=== PATIENT | male | born 1990 | race Hispanic/Latino ===

== ENCOUNTER 2022-08-17 06:20 | Day surgery (SDC) | payer BC ==
[2022-08-16 13:46] LABS: Absolute Lymphocytes (CBC) 2.7 K/uL (0.7-4.9); Hematocrit 46.6 % (39.6-49.0); Lymphocytes % 33.6 % (15.3-44.8); MCV 85.4 fL (80-100); MPV 7.6 fL (7.6-11.3); RBC Red Blood Cell Count 5.46 M/uL (4.33-5.43)
[2022-08-16 14:17] LABS: Albumin 4.4 g/dL (3.4-5.0); Bilirubin Direct 0.3 mg/dL (0-0.2); Bilirubin Total 1.1 mg/dL (0.2-1.0); Potassium 5.1 mEq/L (3.5-5.1)
[2022-08-17] MEDS ORDERED: Ringers Lactate 1,000 ML IV ONE (06:54)
[2022-08-17] MEDS: CEFOXITIN SODIUM 1 GM/VIAL ONE ×2 (07:06→07:30)
[2022-08-17] MEDS ORDERED: ROCURONIUM 50 MG/5 ML VIAL IV ONE (07:30)
[2022-08-17] MEDS ORDERED: propofoL 200 MG/20 ML VIAL IV ONE (07:30)
[2022-08-17] MEDS ORDERED: FENTANYL CITR 100 MCG/2 ML ONE (07:30)
[2022-08-17] MEDS ORDERED: MIDAZOLAM HCL 2 MG/2 ML INJ ONE (07:31)
[2022-08-17] MEDS ORDERED: ONDANSETRON 4 MG/2 ML VIAL ONE (07:31)
[2022-08-17] MEDS ORDERED: LIDOCAINE 2% MPF 5 ML VIAL ONE (07:31)
[2022-08-17] MEDS ORDERED: dexAMETHasone 10 MG/ML VIAL ONE (08:03)
[2022-08-17] MEDS ORDERED: HYDROCODONE/APAP 7.5/325 MG TAB PO PRN (08:36)
[2022-08-17] MEDS ORDERED: GLYCOPYRROLATE 0.2 MG/ML SYR ONE (08:37)
[2022-08-17] MEDS ORDERED: NEOSTIGMINE 1 MG/ML -10 ML VIAL ONE (08:37)
--- NOTE | 2022-08-17 08:40 | P.OP ---
Date of Service: 08/17/22 Preop diagnosis: Biliary colic and gallbladder polyps Postop diagnosis: Same Procedure performed: Laparoscopic cholecystectomy Surgeon: Ryne Patel MD Casing In Line Setter: Desiree HORAN Estimated blood loss: Minimal Specimen: Gallbladder Findings: As above Anesthesia: General Complications: None Drains: None Fluids and blood products: Nonapplicable Disposition: Recovery room Operative note: Patient brought to the OR and placed in the supine position. General anesthesia begun. Patient prepped and draped in the usual sterile fashion. Marcaine 0.5% infiltrated locally for postop pain control. 15 blade used to make a 1 cm infraumbilical midline incision. Subcutaneous tissue divided. Bleeding controlled cautery. Fascia identified and divided. #1 Vicryl stay suture placed. Peritoneal cavity entered with sharp and blunt dissection. 12 mm trocar placed into the peritoneal cavity under direct vision. Pneumoperitoneum established. Then three 5 mm trocars placed. 1 trocar placed in the epigastric region just to the right of midline. 2 trocars placed in the right subcostal region. Laparoscopy revealed mild inflammation of the gallbladder. Minimal adhesions were present. They were removed with cautery. Fundus retracted superiorly. Infundibulum identified and retracted inferolaterally. Cystic duct and cystic artery clearly identified with blunt dissection. Clips placed and both structures divided. Cautery used to remove the gallbladder from the liver bed. Gallbladder retrieved through the umbilicus via Endo Catch bag. Right upper quadrant examined. There was no evidence of bleeding or bile leakage appreciated. All trocars were removed under direct vision. Stay sutures were tied to each other to reapproximate the fascial defect. Subcutaneous was irrigated and bleeding controlled with cautery. 3-0 chromic used to approximate subcutaneous tissue and close skin. Sterile dressing applied. Patient awakened and taken to recovery room in good general condition. CC: Dr. Reis's office
[2022-08-17] MEDS ORDERED: KETOROLAC 30 MG/ML INJ ONE (08:47)
[2022-08-17] MEDS ORDERED: HYDROMORPHONE HCL 1 MG/ML INJ ONE (09:08)
[2022-08-17] MEDS ORDERED: HYDROCODONE/APAP 7.5/325 MG TAB ONE (09:55)
[2022-08-17 10:17] VITALS: BP 112/73; TEMP 97.2
[2022-08-17 10:33] VITALS: O2SAT 100
== END 2022-08-17 10:30 | disposition home or self-care (01) ==
LOC: OR 06:20
PROVIDERS: ATTEND Surgery
PROC: 0FT44ZZ Resection of Gallbladder, Percutaneous Endoscopic Approach (ICD-10-PCS; principal; 2022-08-17 07:30)
DX: K80.50 Calculus of bile duct without cholangitis or cholecystitis without obstruction (principal); K82.8 Other specified diseases of gallbladder
CPT/HCPCS: 36415; 80048; 80076; 83690; 85025; 88304; J0694; J1100; J1170; J2001; J2250; J2405; J2704; J2710; J3010; J7120